=== PATIENT | female | born 2000 | race African-American/Black ===

== ENCOUNTER 2025-07-25 11:08 | Emergency (ER) | payer BC, MEDICAID ==
[~2025-07-25] VITALS: Ht 160 cm; Wt 73.0 kg
[2025-07-25 11:12] VITALS: O2SAT 97
[2025-07-25] MEDS: BACITRACIN ZINC OINT UDPKT TOP ONE (13:42)
[2025-07-25 14:05] VITALS: BP 111/66; PULSE 72; RESP 18; TEMP 37; O2SAT 99
[2025-07-25] MEDS ORDERED: AMOX1TAB16 MT (14:26)
[2025-07-25] MEDS ORDERED: BO1 TP (14:26)
[2025-07-25] MEDS ORDERED: IBUP-2029 MT (14:26)
== END 2025-07-25 14:37 | disposition home or self-care (01) ==
LOC: ER 11:08
DX: S61.250A Open bite of right index finger without damage to nail, initial encounter (principal); W54.0XXA Bitten by dog, initial encounter; Y93.K1 Activity, walking an animal; Y92.89 Other specified places as the place of occurrence of the external cause; Y99.8 Other external cause status
CPT/HCPCS: 73140; 81025; 99283